=== PATIENT | female | born 1945 | race American Indian/Alaskan Native ===

== ENCOUNTER 2020-08-07 10:26 | Outpatient (CLI) | payer MEDICARE ==
--- NOTE | 2020-08-07 11:03 | Mammography Report ---
DIGITAL SCREENING MAMMOGRAM WITH CAD, 08/07/2020 CLINICAL INFORMATION / INDICATION: Routine screening mammography. SCREENING MAMMO TECHNIQUE: Digital bilateral 2D mammography was obtained in the craniocaudal and mediolateral obliqu e projections. This examination was interpreted with the benefit of Computer-Aided Detection analysis . COMPARISON: 07/13/2016 through 08/01/2019. FINDINGS: Breast Density: The breasts are almost entirely fatty. No dominant mass, suspicious calcifications, or architectural distortion in the left breast. Post lumpectomy/radiation changes in the right upper outer quadrant are again identified. Nodularity at the lumpectomy site measures 3.5 cm in greatest dimension on the current study compared to 3.2 cm last year. There is a 1.5 cm nodular component along the superolateral margin of the lumpectomy site which is larger than on last years study and new compared to the other prior studies. Ultrasound was recommended last year, but I do not have a record that it was performed. IMPRESSION: Increasing nodularity along the superolateral margin of the patient's right lumpectomy si te. The findings are suspicious for local tumor recurrence. Targeted right breast ultrasound is recom mended for further evaluation and possible biopsy. Follow up recommendation: Ultrasound BI-RADS Category 0: Incomplete. Needs additional imaging evaluation and/or prior mammograms for [facility]. A "normal" or negative report should not discourage follow up or biopsy of a clinically significant f inding. A written summary of these findings will be mailed to the patient. The patient will be entered into a mammography reporting system which will generate a reminder letter for the patient's next appointmen t at the appropriate interval. The [employer] recommends yearly mammograms starting at age 40 and continuing as l noe as a woman is in good health. Breast MRI is recommended for women with an approximate 20-25% or greater lifetime risk of breast cancer, including women with a strong family history of breast or ova ericka cancer or who have been treated for Hodgkin's disease. Signer Name: Haris Moran MD Signed: 08/07/2020 10:58 AM Workstation Name: [id number]
== END 2020-08-07 10:27 | disposition home or self-care (01) ==
LOC: SPVWC 10:26
PROVIDERS: ATTEND Surgery
DX: Z12.31 Encounter for screening mammogram for malignant neoplasm of breast (principal); N64.89 Other specified disorders of breast
CPT/HCPCS: 77067

== ENCOUNTER 2020-08-14 08:43 | Outpatient (CLI) | payer MEDICARE ==
--- NOTE | 2020-08-14 10:01 | Ultrasound Report ---
EXAMINATION: Right Limited Breast Ultrasound, 08/14/2020 INDICATION: Abnormal screening mammogram. Screening recall of the right breast. The patient has a personal histor y of right breast cancer treated with lumpectomy. She presents for additional evaluation of increasin g nodularity at the lumpectomy site. COMPARISON: Screening mammogram, 08/07/2020, 08/01/2019, 07/21/2018 FINDINGS: Targeted ultrasound evaluation was performed of the area of interest. Sonographic evaluati on of the upper outer aspect of the lumpectomy cavity in the upper outer quadrant demonstrates an ova l solid mass with indistinct margins measuring 1.4 x 1.2 cm. This is located at the 10:00 position 6 cm from the nipple. There is no significant associated vascularity. This corresponds to the increasin g nodularity seen on the mammogram. IMPRESSION: Follow up recommendation: Biopsy BI-RADS Category 4: Suspicious for Malignancy. New oval solid mass along the upper outer aspect of t he lumpectomy cavity which is suspicious for malignancy. Ultrasound-guided biopsy is recommended. A normal or "negative" report should not preclude biopsy or follow-up of a clinically suspicious find ing. Signer Name: Vani Givens MD Signed: 08/14/2020 9:57 AM Workstation Name: [id number]
== END 2020-08-14 08:44 | disposition home or self-care (01) ==
LOC: SPVWC 08:43
PROVIDERS: ATTEND Surgery
DX: N63.11 Unspecified lump in the right breast, upper outer quadrant (principal)

== ENCOUNTER 2020-08-26 10:21 | Outpatient (CLI) | payer MEDICARE ==
--- NOTE | 2020-08-26 12:23 | Ultrasound Report ---
ULTRASOUND GUIDED RIGHT BREAST BIOPSY, 08/26/2020 CLINICAL INFORMATION / INDICATION: ABNORMAL MAMMOGRAM R92.8. History of right breast cancer in 2010 COMPARISON: Recent right breast ultrasound 08/14/2020 and recent mammogram 08/07/2020 PROCEDURE: Risks, benefits, and indications to the procedure were discussed with the patient in detail, includin g bleeding, infection, hematoma formation, and inadequate tissue sampling. The patient agreed to proc eed with both verbal and written consent. A timeout procedure was performed with two patient identifi ers. The breast was prepped and draped in the usual sterile fashion. Lidocaine 1% with and without epineph rine were used for local anesthesia. Under direct ultrasound guidance, multiple core samples were obt ained of the right breast mass adjacent to the lumpectomy cavity. A biopsy marker was then placed. B iopsy device was removed and hemostasis achieved with manual pressure. A sterile dressing was applied to the skin. The patient tolerated the procedure without difficulty. No complications were encountered. Postbiopsy instructions were discussed with the patient and given in writing. Specimens were sent to pathology. IMPRESSION: 1. Technically successful ultrasound guided right breast biopsy. Biopsy results are pending and will be reported in an addendum. DIGITAL DIAGNOSTIC MAMMOGRAM WITH CAD , 08/26/2020 CLINICAL INFORMATION / INDICATION: Postprocedure mammogram following ultrasound-guided biopsy right b reast ABNORMAL MAMMOGRAM R92.8 TECHNIQUE: Digital right mammographic imaging was performed. This examination was interpreted with the benefit of Computer-aided Detection analysis. COMPARISON: Ultrasound-guided biopsy performed today as well as recent mammogram 08/07/2020 FINDINGS: Breast Density: The breasts are almost entirely fatty. Postprocedure mammogram shows biopsy changes in the expected location of the mass adjacent to the lum pectomy cavity. However, the clip has migrated medial to the mass by approximately 2 cm. IMPRESSION: Successful ultrasound-guided biopsy of the right breast. Please note that the clip has mi grated 2 cm medial. Follow up recommendation: Awaiting pathology results. Post biopsy imaging. A "normal" or negative report should not discourage follow up or biopsy of a clinically significant f inding. A written summary of these findings will be mailed to the patient. The patient will be entered into a mammography reporting system which will generate a reminder letter for the patient's next appointmen t at the appropriate interval. According to the [employer], yearly mammograms are recommended starting at age 40 and continuing as long as a woman is in good health. Breast MRI is recommended for women with an leah roximately 20-25% or greater lifetime risk of breast cancer, including women with a strong family his tory of breast or ovarian cancer and women who have been treated for Hodgkin's disease. Signer Name: Letitia Haque MD Signed: 08/26/2020 12:19 PM Workstation Name: [id number]
== END 2020-08-26 10:22 | disposition home or self-care (01) ==
LOC: SPVWC 10:21
PROVIDERS: ATTEND Surgery
DX: R92.8 Other abnormal and inconclusive findings on diagnostic imaging of breast (principal); N64.1 Fat necrosis of breast; N64.89 Other specified disorders of breast; Z85.3 Personal history of malignant neoplasm of breast
CPT/HCPCS: 88305